=== PATIENT | female | born 1970 | race African-American/Black ===

== ENCOUNTER 2017-02-16 07:09 | Emergency (ER) | payer MEDICARE, MEDICAID ==
[~2017-02-16] VITALS: Ht 157.5 cm; Wt 57.0 kg
[2017-02-16 07:45] VITALS: BP 117/77
[2017-02-16] MEDS ORDERED: TETANUS, DIPHTHERIA, PERTUSSIS VAC/PF 0.5ML (>7YR OLD) IM ONE (08:15)
== END 2017-02-16 09:11 | disposition home or self-care (01) ==
LOC: ER 07:10
DX: S01.311A Laceration without foreign body of right ear, initial encounter (principal); F79 Unspecified intellectual disabilities; G40.909 Epilepsy, unspecified, not intractable, without status epilepticus; X58.XXXA Exposure to other specified factors, initial encounter; Y93.89 Activity, other specified; Y92.018 Other place in single-family (private) house as the place of occurrence of the external cause
CPT/HCPCS: 90471; 90715; 99283

== ENCOUNTER 2017-09-10 09:49 | Emergency (ER) | payer MEDICARE, MEDICAID ==
[~2017-09-10] VITALS: Ht 152.4 cm; Wt 59.0 kg
[2017-09-10 10:29] VITALS: BP 124/77
[2017-09-10] MEDS ORDERED: LIDOCAINE HCL 1% 20ML VIAL (Pyxis) INJ INFIL ONE (12:30)
== END 2017-09-10 15:43 | disposition home or self-care (01) ==
LOC: ER 10:48
DX: S02.2XXA Fracture of nasal bones, initial encounter for closed fracture (principal); S01.21XA Laceration without foreign body of nose, initial encounter; W01.0XXA Fall on same level from slipping, tripping and stumbling without subsequent striking against object, initial encounter; W19.XXXA Unspecified fall, initial encounter; Y93.89 Activity, other specified; Y92.89 Other specified places as the place of occurrence of the external cause; Y99.8 Other external cause status
CPT/HCPCS: 12011; 70450; 70486; 99284; J3490

== ENCOUNTER 2018-01-05 09:10 | Emergency (ER) | payer MEDICARE, MEDICAID ==
[~2018-01-05] VITALS: Ht 154.9 cm; Wt 59.0 kg
[2018-01-05] MEDS ORDERED: BACITRACIN ZINC OINT UDPKT TOP ONE (12:30)
[2018-01-05] MEDS ORDERED: LIDOCAINE HCL 1% 20ML VIAL (Pyxis) INJ MC ONE (12:30)
[2018-01-05 14:00] VITALS: BP 108/70
== END 2018-01-05 14:37 | disposition home or self-care (01) ==
LOC: ER 09:16
DX: S00.439A Contusion of unspecified ear, initial encounter (principal); S00.432A Contusion of left ear, initial encounter; X58.XXXA Exposure to other specified factors, initial encounter; Y93.9 Activity, unspecified; Y92.9 Unspecified place or not applicable; R62.50 Unspecified lack of expected normal physiological development in childhood; H54.7 Unspecified visual loss; G40.909 Epilepsy, unspecified, not intractable, without status epilepticus
CPT/HCPCS: 99283; J3490

== ENCOUNTER 2018-01-08 09:26 | Emergency (ER) | payer MEDICARE, MEDICAID ==
[~2018-01-08] VITALS: Ht 154.9 cm; Wt 57.0 kg
[2018-01-08 11:34] VITALS: BP 106/72
== END 2018-01-08 11:36 | disposition home or self-care (01) ==
LOC: ER 09:52
DX: S00.432A Contusion of left ear, initial encounter (principal); Z88.5 Allergy status to narcotic agent; X58.XXXA Exposure to other specified factors, initial encounter; Y93.89 Activity, other specified; Y92.89 Other specified places as the place of occurrence of the external cause; Y99.8 Other external cause status
CPT/HCPCS: 10160; 99284

== ENCOUNTER 2018-01-11 17:21 | Emergency (ER) | payer MEDICARE, MEDICAID ==
[~2018-01-11] VITALS: Ht 154.9 cm; Wt 57.0 kg
[2018-01-11 18:21] VITALS: BP 135/73
[2018-01-11] MEDS ORDERED: BACITRACIN ZINC OINT UDPKT TOP ONE (18:45)
[2018-01-11] MEDS ORDERED: LIDOCAINE HCL 1% 20ML VIAL (Pyxis) INJ INFIL ONE (18:45)
== END 2018-01-12 | disposition home or self-care (01) ==
LOC: ER 22:31
DX: S00.432A Contusion of left ear, initial encounter (principal); F79 Unspecified intellectual disabilities; G40.909 Epilepsy, unspecified, not intractable, without status epilepticus; H54.7 Unspecified visual loss; Z88.5 Allergy status to narcotic agent; X58.XXXA Exposure to other specified factors, initial encounter; Y93.89 Activity, other specified; Y92.018 Other place in single-family (private) house as the place of occurrence of the external cause
CPT/HCPCS: 99284; J3490; 10140; 10160; 99283

== ENCOUNTER 2018-02-14 07:31 | Emergency (ER) | payer MEDICARE, MEDICAID ==
[~2018-02-14] VITALS: Ht 162.6 cm; Wt 56.0 kg
[2018-02-14 07:38] VITALS: BP 103/63
[2018-02-14] MEDS ORDERED: BACITRACIN ZINC OINT UDPKT TOP ONE (08:45)
== END 2018-02-14 09:11 | disposition home or self-care (01) ==
LOC: ER 09:06
DX: S01.81XD Laceration without foreign body of other part of head, subsequent encounter (principal); R56.9 Unspecified convulsions; X58.XXXD Exposure to other specified factors, subsequent encounter
CPT/HCPCS: 99283

== ENCOUNTER 2024-07-09 14:35 | Emergency (ER) | payer MEDICARE, MEDICAID ==
[~2024-07-09] VITALS: Ht 152.4 cm; Wt 58.9 kg
[2024-07-09 14:49] VITALS: BP 109/70; O2SAT 99
[2024-07-09 19:43] VITALS: PULSE 75; RESP 15; TEMP 36.72516; O2SAT 99
== END 2024-07-09 19:46 | disposition home or self-care (01) ==
LOC: ER 14:35
DX: M25.462 Effusion, left knee (principal); F72 Severe intellectual disabilities; Z88.5 Allergy status to narcotic agent; Z86.59 Personal history of other mental and behavioral disorders
CPT/HCPCS: 73502; 73560; 73610; 73700; 93971; 99284